=== PATIENT | male | born 1965 | race American Indian/Alaskan Native ===

== ENCOUNTER 2017-10-15 15:45 | Emergency (ER) | payer BC ==
[2017-10-15 16:22] LABS: Bilirubin,Urine NEG (Negative); Blood,Urine NEG (Negative); Color,Urine Yellow (Yellow); Nitrite,Urine NEG (Negative); Protein,Urine <15 mg/dL mg/dL (Negative); WBC,Urine < 1.0 /HPF (0.0-6.0)
[2017-10-15 16:36] LABS: Alanine Aminotransferase 294 units/L (7-56); Albumin 3.8 g/dL (3.9-5); BUN/Creatinine Ratio 16; Blood Urea Nitrogen 14 mg/dL (9-20); Calcium 8.9 mg/dL (8.4-10.2); Hemolysis Index 7; Lipase 42 units/L (13-60)
[2017-10-15 16:43] LABS: Basophils % (Auto) 0.5 % (0.0-1.8); Eosinophils # (Auto) 0.1 K/mm3 (0.0-0.4); Eosinophils % (Auto) 1.6 % (0.0-4.3); Hematocrit 43.3 % (35.5-45.6); Hemoglobin 14.6 gm/dl (11.8-15.2); Lymphocytes # (Auto) 2.2 K/mm3 (1.2-5.4); Lymphocytes % (Auto) 39.6 % (13.4-35.0); Mean Corpuscular HGB Conc 34 % (32-34); Mean Corpuscular Hemoglobin 31 pg (28-32); Mean Corpuscular Volume 91 fl (84-94); Monocytes # (Auto) 0.5 K/mm3 (0.0-0.8); Monocytes % (Auto) 9.5 % (0.0-7.3); Platelet Count 201 K/mm3 (140-440); Red Blood Count 4.78 M/mm3 (3.65-5.03); Red Cell Distribution Width 13.7 % (13.2-15.2)
--- NOTE | 2017-10-15 17:07 | Emergency Department Report ---
ED N/V/D HPI - General Chief complaint: Nausea/Vomiting/Diarrhea Stated complaint: NVD Time Seen by Provider: 10/15/17 17:06 Source: patient Mode of arrival: Ambulatory Limitations: No Limitations - History of Present Illness Initial comments: Patient complains of nausea vomiting and diarrhea for 2 days. He has a blood pressure of 135/103 and he said he supposedly taking blood pressure medication but he doesn't know the name and he doesn't really take them. Patient does not have a primary care at present. Denies any vomiting today or diarrhea today. Reports nausea at this morning. No [id number] medication taken. Denies any urinary burning, frequency or urgency. Denies any back pain, chest pain or shortness of breath. Denies any history of heart disease. Denies any blood in his stool or any blood in his vomit. Patient said he ate [employer] prior to symptoms started and he thinks this what started it because it is getting better but he still has some nausea but not as much vomiting or diarrhea. MD complaint: nausea, vomiting, diarrhea Onset/Timin -: days(s) Description of Vomiting: food contents Description of Diarrhea: water Associated Abdominal Pain: No Pain Scale: 0 Context: possible food poisoning Associated Symptoms: nausea/vomiting. denies: myalgias, chest pain, cough, diaphoresis, fever/chills, headaches, loss of appetite, malaise, rash, dysuria, shortness of breath, syncope, weakness - Related Data Previous Rx's Medication Instructions Recorded Last Taken Type Acetaminophen/Codeine [Tylenol #3] 1 tab PO Q4HR PRN #20 tablet 08/19/15 Unknown Rx Amoxicillin/K Clav Tab [Augmentin 1 tab PO Q12HR #10 tab 08/19/15 Unknown Rx 875 mg] Ibuprofen [Motrin 800 MG tab] 800 mg PO Q8HR PRN #30 tablet 08/19/15 Unknown Rx Promethazine [Phenergan TAB] 25 mg PO Q6HR PRN #12 tab 10/15/17 Unknown Rx Allergies Allergy/AdvReac Type Severity Reaction Status Date / Time No Known Allergies Allergy Unverified 08/19/15 18:38 ED Review of Systems ROS: Stated complaint: NVD Other details as noted in HPI Comment: All other systems reviewed and negative Constitutional: no symptoms reported Eyes: denies: eye pain ENT: denies: throat pain, congestion Respiratory: no symptoms reported Cardiovascular: denies: chest pain, palpitations, dyspnea on exertion, edema, syncope, paroxysmal nocturnal dyspnea Gastrointestinal: nausea, vomiting, diarrhea. denies: abdominal pain, constipation, hematemesis, melena, hematochezia Genitourinary: denies: urgency, dysuria, frequency, hematuria, discharge, testicular pain, testicular mass Musculoskeletal: denies: back pain Skin: denies: rash Neurological: denies: headache, numbness, paresthesias, confusion, abnormal gait , vertigo ED Past Medical Hx - Past Medical History Previous Medical History?: Yes Hx Hypertension: Yes - Surgical History Past Surgical History?: Yes Additional Surgical History: hernia - Family History Family history: hypertension - Social History Smoking Status: Former Smoker Substance Use Type: Non Opiate Pain, Prescribed, Other (previously heavy all call user) - Medications Home Medications: Home Medications Medication Instructions Recorded Confirmed Last Taken Type Acetaminophen/Codeine [Tylenol #3] 1 tab PO Q4HR PRN #20 tablet 08/19/15 Unknown Rx Amoxicillin/K Clav Tab [Augmentin 1 tab PO Q12HR #10 tab 08/19/15 Unknown Rx 875 mg] Ibuprofen [Motrin 800 MG tab] 800 mg PO Q8HR PRN #30 tablet 08/19/15 Unknown Rx Promethazine [Phenergan TAB] 25 mg PO Q6HR PRN #12 tab 10/15/17 Unknown Rx ED Physical Exam - General Limitations: No Limitations General appearance: in no apparent distress - Head Head exam: Present: atraumatic, normocephalic, normal inspection - Eye Eye exam: Present: normal appearance, PERRL, EOMI. Absent: scleral icterus, nystagmus, periorbital swelling, periorbital tenderness Pupils: Present: normal accommodation - ENT ENT exam: Present: normal exam, normal orophraynx, mucous membranes moist, TM's normal bilaterally, normal external ear exam - Neck Neck exam: Present: normal inspection, full ROM, other (no C-spine tenderness). Absent: tenderness, meningismus, lymphadenopathy, thyromegaly - Respiratory Respiratory exam: Present: normal lung sounds bilaterally. Absent: respiratory distress, chest wall tenderness, accessory muscle use - Cardiovascular Cardiovascular Exam: Present: regular rate, normal rhythm, normal heart sounds. Absent: systolic murmur, diastolic murmur - GI/Abdominal GI/Abdominal exam: Present: soft, normal bowel sounds. Absent: distended, tenderness, guarding, rebound, rigid, organomegaly, mass, bruit, pulsatile mass , hernia - Extremities Exam Extremities exam: Present: normal inspection, full ROM, normal capillary refill , other (no clubbing, cyanosis or edema. +2 pulses in all extremities and no neurovascular compromise). Absent: tenderness, pedal edema, joint swelling, calf tenderness - Back Exam Back exam: Present: normal inspection, full ROM, other (ambulates without any difficulties). Absent: tenderness, CVA tenderness (R), CVA tenderness (L), muscle spasm, paraspinal tenderness, vertebral tenderness, rash noted - Neurological Exam Neurological exam: Present: alert, oriented X3, normal gait, reflexes normal. Absent: motor sensory deficit - Psychiatric Psychiatric exam: Present: normal affect, normal mood - Skin Skin exam: Present: warm, dry, intact, normal color. Absent: rash ED Course Vital Signs 10/15/17 15:48 Temperature 97.8 F Pulse Rate 72 Respiratory 20 Rate Blood Pressure 135/103 O2 Sat by Pulse 97 Oximetry Vital Signs 10/15/17 10/15/17 15:48 18:25 Temperature 97.8 F Pulse Rate 72 Respiratory 20 Rate Blood Pressure 135/103 Blood Pressure 130/100 [Left] O2 Sat by Pulse 97 Oximetry - Reevaluation(s) Reevaluation #1: 10/15/17 18:23 Patient given Zofran 8 mg ODT and emergency room which relieved his nausea. He said he's feeling much better and was orally challenged emergency room. ED Medical Decision Making - Lab Data Result diagrams: 10/15/17 16:02 10/15/17 16:02 Lab Results 10/15/17 10/15/17 10/15/17 Range/Units 16:02 16:02 16:06 WBC 5.5 (4.5-11.0) K/mm3 RBC 4.78 (3.65-5.03) M/mm3 Hgb 14.6 (11.8-15.2) gm/dl Hct 43.3 (35.5-45.6) % MCV 91 (84-94) fl MCH 31 (28-32) pg MCHC 34 (32-34) % RDW 13.7 (13.2-15.2) % Plt Count 201 (140-440) K/mm3 Lymph % (Auto) 39.6 H (13.4-35.0) % [place] % (Auto) 9.5 H (0.0-7.3) % Eos % (Auto) 1.6 (0.0-4.3) % Baso % (Auto) 0.5 (0.0-1.8) % Lymph # 2.2 (1.2-5.4) K/mm3 [place] # 0.5 (0.0-0.8) K/mm3 Eos # 0.1 (0.0-0.4) K/mm3 Baso # 0.0 (0.0-0.1) K/mm3 Seg Neutrophils % 48.8 (40.0-70.0) % Seg Neutrophils # 2.7 (1.8-7.7) K/mm3 Sodium 142 (137-145) mmol/L Potassium 3.7 (3.6-5.0) mmol/L Chloride 102.1 (98-107) mmol/L Carbon Dioxide 31 H (22-30) mmol/L Anion Gap 13 mmol/L BUN 14 (9-20) mg/dL Creatinine 0.9 (0.8-1.5) mg/dL Estimated GFR > 60 ml/min BUN/Creatinine Ratio 16 % Glucose 83 (75-100) mg/dL Calcium 8.9 (8.4-10.2) mg/dL Total Bilirubin 0.70 (0.1-1.2) mg/dL AST 315 H (5-40) units/L ALT 294 H (7-56) units/L Alkaline Phosphatase 70 (35-129) units/L Total Protein 8.4 H (6.3-8.2) g/dL Albumin 3.8 L (3.9-5) g/dL Albumin/Globulin Ratio 0.8 % Lipase 42 (13-60) units/L Urine Color Yellow (Yellow) Urine Turbidity Clear (Clear) Urine pH 5.0 (5.0-7.0) Ur Specific [place] 1.016 (1.003-1.030) Urine Protein <15 mg/dl (Negative) mg/dL Urine Glucose (UA) Neg (Negative) mg/dL Urine Ketones Neg (Negative) mg/dL Urine Blood Neg (Negative) Urine Nitrite Neg (Negative) Urine Bilirubin Neg (Negative) Urine Urobilinogen 4.0 (<2.0) mg/dL Ur Leukocyte Esterase Neg (Negative) Urine WBC (Auto) < 1.0 (0.0-6.0) /HPF Urine RBC (Auto) 2.0 (0.0-6.0) /HPF - Medical Decision Making ED course: Patient here reports nausea vomiting and diarrhea that started 2 days ago after eating tach about. He has a history of high blood pressure and does not take his medication. Patient also with elevated liver enzymes and in reviewing charts noted in 2016 he had elevated liver enzymes also but today's values were more elevated than previously. Patient denies any alcohol use but he did said he drank heavily up until 2009 and he also said that he had been told by [employer] at he had some issues with his liver but he did not know what the issues were. He denies ever knowing that he has cirrhosis. He denies ever bleeding from his rectal or oral area. Patient was given Zofran 8 mg ODT and was challenged orally in emergency room with nausea medication and tolerated oral liquids well. Patient stable he said he feels better blood pressure is 130/100. I discussed patient that I will refer him to [facility] for primary care and management of chronic medical problems. I also discussed him down for him to [facility] gastroenterology for elevated liver enzyme. I discussed him that he needs to refrain from drinking all call earlier taken any medication such as Motrin, naproxen, ibuprofen, Advil or aspirin until he is being evaluated for reason for elevated liver enzymes. He voiced understanding and discharged home in stable condition with prescription for Zofran and to start off ED in a diet that is planned to include banana, rice , applesauce and toast for the next 72 hours. Critical care attestation.: If time is entered above; I have spent that time in minutes in the direct care of this critically ill patient, excluding procedure time. ED Disposition Clinical Impression: Abnormal liver enzymes, Nausea vomiting and diarrhea Disposition: DC-01 TO HOME OR SELFCARE Is pt being admited?: No Does the pt Need Aspirin: No Condition: Stable Instructions: Acute Nausea and Vomiting (ED), Acute Diarrhea (ED), Nutrition Tips for Relief of Diarrhea (ED) Additional Instructions: Please increase her fluid intake to include water and cranberry, apple or Gatorade. Please avoid taking medication that is toxic to the liver to include Motrin, ibuprofen, naproxen and Advil and aspirin. He will need to follow with a purler regarding her elevated liver enzyme that is chronic. Continue to refrain from drinking alcohol Follow-up with [facility] for management of your blood pressure and she will need to keep a log of her blood pressure to take 2 appointment with you. You really should take blood pressure medication as prescribed by your doctor. Prescriptions: Promethazine [Phenergan TAB] 25 mg PO Q6HR PRN #12 tab PRN Reason: Nausea Referrals: [facility] [Outside] - 2-3 Days [facility] [Provider Group] - 2-3 Days Forms: Work/School Release Form(ED)
[2017-10-15] MEDS ORDERED: ZOFRAN ODT PO ONE (17:11)
[2017-10-15 18:25] VITALS: BP 130/100
== END 2017-10-15 18:47 | disposition home or self-care (01) ==
LOC: ED 15:45
DX: R11.2 Nausea with vomiting, unspecified (principal); R19.7 Diarrhea, unspecified; R74.8 Abnormal levels of other serum enzymes; I10 Essential (primary) hypertension; Z87.891 Personal history of nicotine dependence
CPT/HCPCS: 36415; 80053; 81001; 83690; 85025; 99283; Q0162

== ENCOUNTER 2018-03-11 20:56 | Emergency (ER) | payer BC ==
[2018-03-11 21:24] VITALS: BP 145/106
[2018-03-12] MEDS ORDERED: BENTYL PO ONE (01:19)
--- NOTE | 2018-03-12 01:59 | Emergency Department Report ---
Vomiting/Diarrhea - HPI Chief Complaint: Nausea/Vomiting/Diarrhea Stated Complaint: ABD PAIN; DIARRHEA Time Seen by Provider: 03/12/18 01:17 Duration: for the past week Nausea/Vomiting Severity: None Diarrhea Severity: Mild Symptoms: Yes Able to Tolerate Fluids, No Watery Diarrhea, No Bloody diarrhea, No Fever, No Recent Unusual Foods, No Recent Untreated Water, No Recent use of Antibiotics, No Family w/ Similar Symptoms, No Contacts w/ Similar Symptoms, No Rash, No Hematuria, No Recent URI Symptoms Other History: 52-year-old -[place]ron[place] male comes in complaining of frequent diarrhea. Patient reports that this is been going on for past week when he passes gas he may have a little loose stool or fills with in the back. He reports diarrhea is increasing and sometimes he thinks he is not going to make it to the bathroom. Patient denies any bloody stool reports that the stool is a 20 loose and pasty. Patient denies any recent use of antibiotics no unusual foods no abdominal cramping just stool incontinent and stool urgency he may have 1-2 times a day. Patient does not have a primary care provider at this time. ED Review of Systems ROS: Stated complaint: ABD PAIN; DIARRHEA Other details as noted in HPI Gastrointestinal: diarrhea. denies: abdominal pain, nausea, vomiting, constipation, hematemesis, melena, hematochezia Genitourinary: denies: urgency, dysuria Musculoskeletal: denies: back pain, joint swelling, arthralgia Skin: denies: rash, lesions Neurological: denies: headache, weakness, paresthesias Psychiatric: denies: anxiety, depression Hematological/Lymphatic: denies: easy bleeding, easy bruising ED Past Medical Hx - Past Medical History Previous Medical History?: Yes Hx Hypertension: Yes - Surgical History Past Surgical History?: Yes Additional Surgical History: hernia - Social History Smoking Status: Never Smoker Substance Use Type: None - Medications Home Medications: Home Medications Medication Instructions Recorded Confirmed Last Taken Type Acetaminophen/Codeine [Tylenol #3] 1 tab PO Q4HR PRN #20 tablet 08/19/15 Unknown Rx Amoxicillin/K Clav Tab [Augmentin 1 tab PO Q12HR #10 tab 08/19/15 Unknown Rx 875 mg] Ibuprofen [Motrin 800 MG tab] 800 mg PO Q8HR PRN #30 tablet 08/19/15 Unknown Rx Promethazine [Phenergan TAB] 25 mg PO Q6HR PRN #12 tab 10/15/17 Unknown Rx Vomiting Diarrhea Exam - Exam General: Vital signs noted. No distress. Alert and acting appropriately. HEENT: Yes Moist Mucous Membranes, No Pharyngeal Erythema, No Pharyngeal Exudates, No Rhinorrhea, No Conjuctival Injection, No Frontal Tenderness, No Maxillary Tenderness Neck: No Adenopathy, No Rigidity Lungs: Yes Clear Lung Sounds, Yes Good Air Exchange, No Wheezes, No Stridor, No Cough, No Nasal Flaring, No Retractions, No Use of Accessory Muscles Heart exam: Regular: Yes, Murmur: No, Tachycardia: No Abdomen: Tenderness: No, Peritoneal Signs: No, Distention: No, Hyperactive Bowel sounds: No Skin exam: Rash: No, Edema: No, Normal turgor: Yes Neurologic: Alert and oriented, no deficits. Musculoskeletal: Unremarkable. ED Course Vital Signs 03/11/18 21:15 Temperature 98 F Pulse Rate 74 Respiratory 18 Rate Blood Pressure 145/106 O2 Sat by Pulse 98 Oximetry Critical care attestation.: If time is entered above; I have spent that time in minutes in the direct care of this critically ill patient, excluding procedure time. ED Disposition Clinical Impression: Feces incontinence Qualifiers: Fecal incontinence type: fecal smearing Qualified Code(s): R15.1 - Fecal smearing Disposition: - TO HOME OR SELFCARE Is pt being admited?: No Does the pt Need Aspirin: No Condition: Stable Instructions: Loperamide (By mouth), Acute Diarrhea (ED), Nutrition Tips for Relief of Diarrhea (ED) Additional Instructions: Please follow up with gastroenterology as well as Dr. [place] Farrell for further evaluation. Referrals: PRIMARY CARE, [Primary Care Provider] - 3-5 Days [facility] [Provider Group] - 3-5 Days [facility] [Provider Group] - 3-5 Days CHANTE ESPINO MD [Staff Physician] - 3-5 Days ALBARO FARRELL JR, MD [Staff Physician] - 3-5 Days Forms: Work/School Release Form(ED)
[2018-03-12] MEDS ORDERED: IMODIUM PO ONE (02:02)
== END 2018-03-12 02:33 | disposition home or self-care (01) ==
LOC: ED 20:56
DX: R15.9 Full incontinence of feces (principal); I10 Essential (primary) hypertension
CPT/HCPCS: 99282

== ENCOUNTER 2018-10-13 19:17 | Emergency (ER) | payer BC ==
--- NOTE | 2018-10-13 19:45 | Emergency Department Report ---
Blank Doc - Documentation Documentation: 53 yo male presents with abd discomfort, denies n/v/d able to eat and drink with no issues non tender Reevalute
--- NOTE | 2018-10-13 23:09 | Emergency Department Report ---
ED General Adult HPI - General Chief complaint: Abdominal Pain Stated complaint: ABD PAIN Time Seen by Provider: 10/13/18 19:36 Source: patient Mode of arrival: Ambulatory Limitations: No Limitations - History of Present Illness Initial comments: D5 0 -[place] male who has been seen for the third time for complaint of loss of control with his bowel movements. Patient states it has been dealing with it for a while. States he gets a little morning but not enough time to get to the bathroom. Patient describes his stool is liquid with some solid stool. Patient denies any abdominal pain. Patient admits that he did not follow up with a optic fibre drawer or primary care provider. Patient was also seen in June for the same complaint and was placed on metronidazole Bentyl and ciprofloxacin. -: month(s) (6) Severity scale (0 -10): 5 Consistency: intermittent Associated Symptoms: other Treatments Prior to Arrival: none (diarrhea) - Related Data Previous Rx's Medication Instructions Recorded Last Taken Type Acetaminophen/Codeine [Tylenol #3] 1 tab PO Q4HR PRN #20 tablet 08/19/15 Unknown Rx Amoxicillin/K Clav Tab [Augmentin 1 tab PO Q12HR #10 tab 08/19/15 Unknown Rx 875 mg] Ibuprofen [Motrin 800 MG tab] 800 mg PO Q8HR PRN #30 tablet 08/19/15 Unknown Rx Promethazine [Phenergan TAB] 25 mg PO Q6HR PRN #12 tab 10/15/17 Unknown Rx Ciprofloxacin HCl [Ciprofloxacin 500 mg PO Q12HR #20 tab 06/30/18 Unknown Rx TAB] Dicyclomine [Bentyl] 10 mg PO QID #20 capsule 06/30/18 Unknown Rx metroNIDAZOLE [Flagyl] 500 mg PO Q12HR #20 tab 06/30/18 Unknown Rx Loperamide HCl [Imodium A-D] 2 mg PO TID PRN #15 capsule 10/13/18 Unknown Rx Allergies Allergy/AdvReac Type Severity Reaction Status Date / Time No Known Allergies Allergy Unverified 08/19/15 18:38 ED Review of Systems ROS: Stated complaint: ABD PAIN Other details as noted in HPI Comment: All other systems reviewed and negative ENT: ear pain (rt) Gastrointestinal: diarrhea (intermittent chronic diarrhea) ED Past Medical Hx - Past Medical History Previous Medical History?: Yes Hx Hypertension: Yes Hx Asthma: Yes (as child) - Surgical History Past Surgical History?: Yes Additional Surgical History: hernia repair x3 - Social History Smoking Status: Never Smoker Substance Use Type: None - Medications Home Medications: Home Medications Medication Instructions Recorded Confirmed Last Taken Type Acetaminophen/Codeine [Tylenol #3] 1 tab PO Q4HR PRN #20 tablet 08/19/15 Unknown Rx Amoxicillin/K Clav Tab [Augmentin 1 tab PO Q12HR #10 tab 08/19/15 Unknown Rx 875 mg] Ibuprofen [Motrin 800 MG tab] 800 mg PO Q8HR PRN #30 tablet 08/19/15 Unknown Rx Promethazine [Phenergan TAB] 25 mg PO Q6HR PRN #12 tab 10/15/17 Unknown Rx Ciprofloxacin HCl [Ciprofloxacin 500 mg PO Q12HR #20 tab 06/30/18 Unknown Rx TAB] Dicyclomine [Bentyl] 10 mg PO QID #20 capsule 06/30/18 Unknown Rx metroNIDAZOLE [Flagyl] 500 mg PO Q12HR #20 tab 06/30/18 Unknown Rx Loperamide HCl [Imodium A-D] 2 mg PO TID PRN #15 capsule 10/13/18 Unknown Rx ED Physical Exam - General Limitations: No Limitations General appearance: alert, in no apparent distress - Head Head exam: Present: atraumatic, normocephalic - Eye Eye exam: Present: EOMI - ENT ENT exam: Present: mucous membranes moist, TM's normal bilaterally - Neck Neck exam: Present: normal inspection - Respiratory Respiratory exam: Present: normal lung sounds bilaterally. Absent: respiratory distress - Cardiovascular Cardiovascular Exam: Present: regular rate, normal rhythm. Absent: systolic murmur, diastolic murmur, rubs, gallop - GI/Abdominal GI/Abdominal exam: Present: soft. Absent: tenderness - Rectal Rectal exam: Present: deferred - Neurological Exam Neurological exam: Present: alert, oriented X3 - Psychiatric Psychiatric exam: Present: normal affect, normal mood - Skin Skin exam: Present: warm, dry, intact, normal color. Absent: rash ED Course Vital Signs 10/13/18 19:35 Temperature 98.4 F Pulse Rate 82 Respiratory 18 Rate Blood Pressure 145/93 O2 Sat by Pulse 96 Oximetry ED Medical Decision Making - Medical Decision Making Patient has been evaluated by this provider fast. I discussed the patient that he can take [id number] Imodium for his chronic diarrhea. I also discussed the patient do not take more than 8mg in 24 hours. I discussed the patient that is very important for him to follow up with the optic fibre drawer and her primary care provider. Patient verbalized understanding. Critical care attestation.: If time is entered above; I have spent that time in minutes in the direct care of this critically ill patient, excluding procedure time. ED Disposition Clinical Impression: Chronic diarrhea of unknown origin Disposition: DC- TO HOME OR SELFCARE Is pt being admited?: No Does the pt Need Aspirin: No Condition: Stable Instructions: Loperamide (By mouth), Chronic Diarrhea (ED) Additional Instructions: Discussed that she needs to follow-up with a optic fibre drawer I have listed several below for your convenience. Please take Imodium only as needed in this prescribed. Prescriptions: Loperamide HCl [Imodium A-D] 2 mg PO TID PRN #15 capsule PRN Reason: Diarrhea Referrals: ERICA ORTIZ MD [Primary Care Provider] - 3-5 Days ALBARO MCINTOSH JR, MD [Staff Physician] - 3-5 Days CHANTE ESPINO MD [Staff Physician] - 3-5 Days [facility] [Provider Group] - 3-5 Days [facility] [Provider Group] - 3-5 Days Forms: Work/School Release Form(ED)
== END 2018-10-13 23:30 | disposition home or self-care (01) ==
LOC: ED 19:17
CPT/HCPCS: 99282

== ENCOUNTER 2019-02-17 20:58 | Emergency (ER) | payer BC ==
[2019-02-17 21:44] VITALS: BP 158/104
--- NOTE | 2019-02-17 21:44 | Event Note ---
ED Screening Note Date of service: 02/17/19 Time: 21:42 ED Screening Note: 53 y/o male comes in for 3 week history of back pain. No urinary issues no trauma. This initial assessment/diagnostic orders/clinical plan/treatment(s) is/are subject to change based on patients health status, clinical progression and re- assessment by fellow clinical providers in the ED. Further treatment and workup at subsequent clinical providers discretion. Patient/guardian urged not to elope from the ED as their condition may be serious if not clinically assessed and managed. Initial orders include:
[2019-02-18] MEDS ORDERED: ULTRAM PO ONE (00:29)
--- NOTE | 2019-02-18 01:26 | XRay Report ---
PROCEDURE: XR SPINE LUMBOSACRAL 2-3V TECHNIQUE: Lumbar spine radiographs, PROCEDURE: XR SPINE LUMBOSACRAL 2-3V TECHNIQUE: Lumbar spine radiographs, AP and lateral views. HISTORY: back pain COMPARISONS: None . FINDINGS: Alignment: There is slight anterolisthesis of L4 relation L5 . Vertebral body heights/Disk spaces: Mild loss of disc space height at the L4-5 and L5-S1 levels. Mil d spur formation off the osseous structures. . Fracture(s): None . Facets: Normal . Bone mineralization: Normal . IMPRESSION: No acute fracture or dislocation. Mild lumbar spondylosis. . views. HISTORY: back pain COMPARISONS: None . FINDINGS: Alignment: Normal . Vertebral body heights/Disk spaces: Normal . Fracture(s): None . Facets: Normal . Bone mineralization: Normal . IMPRESSION: Normal Examination . This document is electronically signed by Olivia Cm DO., February 18 2019 01:24:43 AM ET
--- NOTE | 2019-02-18 01:34 | Emergency Department Report ---
ED Back Pain/Injury HPI - General Chief Complaint: Extremity Injury, Lower Stated Complaint: BACK PAIN Time Seen by Provider: 02/18/19 00:28 Source: patient Limitations: No Limitations - History of Present Illness Initial Comments: 53 y/o male comes in for 3 week history of back pain. No urinary issues no trauma. pt has hx of arthralgia pain is 5/10 aching radiating to right lateral thigh there is no weakness parlaysis no numbness no tingling no loss or decrease in bowel or bladder function pt remains ambulatory to baseline per patient. MD Complaint: back pain Onset/Timin -: week(s), unknown (chronic 5 yrs ) Similar Symptoms Previously: Yes Place: home Radiation: right leg Severity: moderate Severity scale (0 -10): 4 Quality: aching Consistency: constant Improves With: none Worsens With: movement, sitting upright, walking Context: while lifting, turning/twisting, bending Associated Symptoms: denies: weakness, difficulty urinating, incontinence, constipation - Related Data Previous Rx's Medication Instructions Recorded Last Taken Type Acetaminophen/Codeine [Tylenol #3] 1 tab PO Q4HR PRN #20 tablet 08/19/15 Unknown Rx Amoxicillin/K Clav Tab [Augmentin 1 tab PO Q12HR #10 tab 08/19/15 Unknown Rx 875 mg] Ibuprofen [Motrin 800 MG tab] 800 mg PO Q8HR PRN #30 tablet 08/19/15 Unknown Rx Promethazine [Phenergan TAB] 25 mg PO Q6HR PRN #12 tab 10/15/17 Unknown Rx Ciprofloxacin HCl [Ciprofloxacin 500 mg PO Q12HR #20 tab 06/30/18 Unknown Rx TAB] Dicyclomine [Bentyl] 10 mg PO QID #20 capsule 06/30/18 Unknown Rx metroNIDAZOLE [Flagyl] 500 mg PO Q12HR #20 tab 06/30/18 Unknown Rx Loperamide HCl [Imodium A-D] 2 mg PO TID PRN #15 capsule 10/13/18 Unknown Rx Diclofenac EC [Voltaren] 25 mg PO Q8HR PRN #60 tablet 02/18/19 Unknown Rx Menthol/Camphor [[place] 1 applicatio TP QID PRN #1 tube 02/18/19 Unknown Rx Ointment] methOCARBAMOL [Robaxin TAB] 500 mg PO Q8H PRN #60 tablet 02/18/19 Unknown Rx predniSONE [Deltasone] 40 mg PO QDAY 5 Days #10 tab 02/18/19 Unknown Rx Allergies Allergy/AdvReac Type Severity Reaction Status Date / Time No Known Allergies Allergy Unverified 08/19/15 18:38 ED Review of Systems ROS: Stated complaint: BACK PAIN Other details as noted in HPI Constitutional: denies: chills, fever Eyes: denies: eye pain, eye discharge, vision change ENT: denies: ear pain, throat pain Respiratory: denies: cough, shortness of breath, wheezing Cardiovascular: denies: chest pain, palpitations Endocrine: no symptoms reported Gastrointestinal: denies: abdominal pain, nausea, vomiting, diarrhea Genitourinary: denies: urgency, dysuria Musculoskeletal: back pain, arthralgia, myalgia. denies: joint swelling Skin: denies: rash, lesions Neurological: denies: headache, weakness, paresthesias Psychiatric: denies: anxiety, depression Hematological/Lymphatic: denies: easy bleeding, easy bruising ED Past Medical Hx - Past Medical History Previous Medical History?: Yes Hx Hypertension: Yes Hx Asthma: Yes (as child) - Surgical History Past Surgical History?: Yes Additional Surgical History: hernia repair x3 - Social History Smoking Status: Never Smoker Substance Use Type: None - Medications Home Medications: Home Medications Medication Instructions Recorded Confirmed Last Taken Type Acetaminophen/Codeine [Tylenol #3] 1 tab PO Q4HR PRN #20 tablet 08/19/15 Unknown Rx Amoxicillin/K Clav Tab [Augmentin 1 tab PO Q12HR #10 tab 08/19/15 Unknown Rx 875 mg] Ibuprofen [Motrin 800 MG tab] 800 mg PO Q8HR PRN #30 tablet 08/19/15 Unknown Rx Promethazine [Phenergan TAB] 25 mg PO Q6HR PRN #12 tab 10/15/17 Unknown Rx Ciprofloxacin HCl [Ciprofloxacin 500 mg PO Q12HR #20 tab 06/30/18 Unknown Rx TAB] Dicyclomine [Bentyl] 10 mg PO QID #20 capsule 06/30/18 Unknown Rx metroNIDAZOLE [Flagyl] 500 mg PO Q12HR #20 tab 06/30/18 Unknown Rx Loperamide HCl [Imodium A-D] 2 mg PO TID PRN #15 capsule 10/13/18 Unknown Rx Diclofenac EC [Voltaren] 25 mg PO Q8HR PRN #60 tablet 02/18/19 Unknown Rx Menthol/Camphor [[place] 1 applicatio TP QID PRN #1 tube 02/18/19 Unknown Rx Ointment] methOCARBAMOL [Robaxin TAB] 500 mg PO Q8H PRN #60 tablet 02/18/19 Unknown Rx predniSONE [Deltasone] 40 mg PO QDAY 5 Days #10 tab 02/18/19 Unknown Rx ED Physical Exam - General Limitations: No Limitations General appearance: alert, in no apparent distress - Head Head exam: Present: atraumatic, normocephalic - Eye Eye exam: Present: normal appearance, PERRL, EOMI Pupils: Present: normal accommodation - ENT ENT exam: Present: mucous membranes moist - Neck Neck exam: Present: normal inspection, full ROM, lymphadenopathy. Absent: tenderness, meningismus, thyromegaly - Expanded Neck Exam Expanded Neck exam: Absent: tenderness (there is no posterior vertebral point tenderness rom intact all raymond), midline deformity, anterior neck swelling, thyroid mass, carotid bruit, tracheal deviation - Respiratory Respiratory exam: Present: normal lung sounds bilaterally. Absent: respiratory distress, wheezes, stridor, chest wall tenderness - Cardiovascular Cardiovascular Exam: Present: regular rate, normal rhythm, normal heart sounds. Absent: systolic murmur, diastolic murmur, rubs, gallop - GI/Abdominal GI/Abdominal exam: Present: soft, normal bowel sounds. Absent: distended, tenderness, guarding, rebound, rigid, bruit, pulsatile mass - Rectal Rectal exam: Present: deferred - Extremities Exam Extremities exam: Present: normal inspection, full ROM, normal capillary refill. Absent: tenderness, pedal edema, joint swelling, calf tenderness - Back Exam Back exam: Present: normal inspection, full ROM, tenderness, muscle spasm, paraspinal tenderness. Absent: CVA tenderness (R), CVA tenderness (L), vertebral tenderness (no posterior vertebral point tenderness ), rash noted - Expanded Back Exam Expanded Back exam: Absent: saddle anesthesia Back exam: Sciatic Notch Tenderness: Right, Positive Straight Leg Raise: Right, Negative Straight Leg Raising: Left - Neurological Exam Neurological exam: Present: alert, oriented X3, CN II-XII intact, normal gait, reflexes normal - Expanded Neurological Exam Expanded Patient oriented to: Present: person, place, time Speech: Present: fluid speech Cranial nerves: EOM's Intact: Normal, Gag Reflex: Normal, Tongue Deviation: Normal, Nystagmus: Normal, Facial Sensation: Normal Cerebellar function: Finger to Nose: Normal, Heel to [place]: Normal, Romberg: Normal Upper motor neuron: Damion Neglect: Normal, Pronator Drift: Normal, Babinski Sign: Normal, Sensory Extinction: Normal Sensory exam: Upper Extremity Light Touch: Normal, Upper Extremity Pin Prick: Normal, Lower Extremity Temperature: Normal, LE 2 Point Discrimination: Normal Motor strength exam: RUE: 5, LUE: 5, RLE: 5, LLE: 5 DTR: bicep (R): 2+, bicep (L): 2+, ankle (R): 2+, ankle (L): 2+ Best Eye Response ([place]): (4) open spontaneously Best Motor Response ([place]): (6) obeys commands Best Verbal Response ([place]): (5) oriented Yesika Total: 15 - Psychiatric Psychiatric exam: Present: normal affect, normal mood - Skin Skin exam: Present: warm, dry, intact, normal color. Absent: rash ED Course Vital Signs 02/17/19 21:41 Temperature 97.9 F Pulse Rate 83 Respiratory 18 Rate Blood Pressure 158/104 O2 Sat by Pulse 97 Oximetry ED Medical Decision Making - Radiology Data Radiology results: report reviewed, image reviewed Patient: LIBORIO CARCAMO MR#: [id number] : 1965 Acct:[id number] Age/Sex: 53 / M ADM Date: 02/17/19 Loc: ED Attending Dr: Ordering Physician: MARLYN ALMODOVAR NP Date of Service: 02/18/19 Procedure(s): XR spine lumbosacral 2-3V Accession Number(s): [id number] cc: MARLYN ALMODOVAR NP Fluoro Time In Minutes: PROCEDURE: XR SPINE LUMBOSACRAL 2-3V TECHNIQUE: Lumbar spine radiographs, PROCEDURE: XR SPINE LUMBOSACRAL 2-3V TECHNIQUE: Lumbar spine radiographs, AP and lateral views. HISTORY: back pain COMPARISONS: None . FINDINGS: Alignment: There is slight anterolisthesis of L4 relation L5 . Vertebral body heights/Disk spaces: Mild loss of disc space height at the L4-5 and L5-S1 levels. Mild spur formation off the osseous structures. . Fracture(s): None . Facets: Normal . Bone mineralization: Normal . IMPRESSION: No acute fracture or dislocation. Mild lumbar spondylosis. . views. HISTORY: back pain COMPARISONS: None . FINDINGS: Alignment: Normal . Vertebral body heights/Disk spaces: Normal . Fracture(s): None . Facets: Normal . Bone mineralization: Normal . IMPRESSION: Normal Examination . This document is electronically signed by Olivia Cm DO., February 18 2019 01:24:43 AM ET Transcribed By: [facility] Dictated By: OLIVIA CM MD Electronically Authenticated By: OLIVIA CM MD Signed Date/Time: 02/18/19 0135 DD/ 0029 TD/TT: 02/18/19 0050 - Medical Decision Making xray no fracture no soft tissue abnormality mild lumbar spondylosis, plan nsaids muscle relaxant, analgesic balm , moist heat therapy , follow up with ortho as requested pt verbalized agreement and understanding of same. Critical care attestation.: If time is entered above; I have spent that time in minutes in the direct care of this critically ill patient, excluding procedure time. ED Disposition Clinical Impression: Lumbar strain Qualifiers: Encounter type: initial encounter Qualified Code(s): S39.012A - Strain of muscle, fascia and tendon of lower back, initial encounter Chronic low back pain Qualifiers: Back pain laterality: right Sciatica presence: with sciatica Sciatica laterality: sciatica of right side Qualified Code(s): M54.41 - Lumbago with sc iatica, right side; G89.29 - Other chronic pain Disposition: - TO HOME OR SELFCARE Is pt being admited?: No Does the pt Need Aspirin: No Condition: Stable Instructions: Low Back Strain (ED), Core Strengthening Exercises (GEN), Sciatica (ED) Prescriptions: predniSONE [Deltasone] 40 mg PO QDAY 5 Days #10 tab methOCARBAMOL [Robaxin TAB] 500 mg PO Q8H PRN #60 tablet PRN Reason: Muscle Spasm Menthol/Camphor [[place] Ointment] 1 applicatio TP QID PRN #1 tube PRN Reason: pain Diclofenac EC [Voltaren] 25 mg PO Q8HR PRN #60 tablet PRN Reason: pain Referrals: MARCOS SILVER MD [Emergency Provider] - 3-5 Days Forms: Work/School Release Form(ED) Time of Disposition: 01:51
== END 2019-02-18 02:00 | disposition home or self-care (01) ==
LOC: ED 20:58
DX: S39.012A Strain of muscle, fascia and tendon of lower back, initial encounter (principal); G89.29 Other chronic pain; I10 Essential (primary) hypertension; J45.909 Unspecified asthma, uncomplicated; X50.9XXA Other and unspecified overexertion or strenuous movements or postures, initial encounter; Y93.89 Activity, other specified; Y92.009 Unspecified place in unspecified non-institutional (private) residence as the place of occurrence of the external cause; Y99.8 Other external cause status
CPT/HCPCS: 72100

== ENCOUNTER 2019-08-10 22:12 | Emergency (ER) | payer SELFPAY ==
--- NOTE | 2019-08-10 22:32 | Emergency Department Report ---
HPI - General Time Seen by Provider: 08/10/19 22:28 - HPI HPI: Room 21 The patient is a 54-year-old male presenting with chief complaint cardiac arrest. Per EMS the patient was found face down on sidewalk ventricular fibrillation. An opiate was placed and ACLS protocols were initiated. EMS states they defibrillated the patient multiple times and administered 4 rounds of epinephrine and 1 amp of sodium bicarbonate through an IO. Upon arrival to the ED the patient was intubated by myself with an 8.0 ET tube and ACLS protocols were continued without return of spontaneous circulation ED Past Medical Hx - Past Medical History Hx Hypertension: Yes Hx Asthma: Yes (as child) - Surgical History Additional Surgical History: hernia repair x3 - Family History Family history: no significant - Social History Smoking Status: Unknown if ever smoked Substance Use Type: None - Medications Home Medications: Home Medications Medication Instructions Recorded Confirmed Last Taken Type Acetaminophen/Codeine [Tylenol #3] 1 tab PO Q4HR PRN #20 tablet 08/19/15 Unknown Rx Amoxicillin/K Clav Tab [Augmentin 1 tab PO Q12HR #10 tab 08/19/15 Unknown Rx 875 mg] Ibuprofen [Motrin 800 MG tab] 800 mg PO Q8HR PRN #30 tablet 08/19/15 Unknown Rx Promethazine [Phenergan TAB] 25 mg PO Q6HR PRN #12 tab 10/15/17 Unknown Rx Ciprofloxacin HCl [Ciprofloxacin 500 mg PO Q12HR #20 tab 06/30/18 Unknown Rx TAB] Dicyclomine [Bentyl] 10 mg PO QID #20 capsule 06/30/18 Unknown Rx metroNIDAZOLE [Flagyl] 500 mg PO Q12HR #20 tab 06/30/18 Unknown Rx Loperamide HCl [Imodium A-D] 2 mg PO TID PRN #15 capsule 10/13/18 Unknown Rx Diclofenac EC [Voltaren] 25 mg PO Q8HR PRN #60 tablet 02/18/19 Unknown Rx Menthol/Camphor [[place] 1 applicatio TP QID PRN #1 tube 02/18/19 Unknown Rx Ointment] methOCARBAMOL [Robaxin TAB] 500 mg PO Q8H PRN #60 tablet 02/18/19 Unknown Rx predniSONE [Deltasone] 40 mg PO QDAY 5 Days #10 tab 02/18/19 Unknown Rx ED Review of Systems ROS: Stated complaint: CARDIAC ARREST Other details as noted in HPI Comment: Unobtainable due to pts medical conditions Physical Exam - Physical Exam Physical Exam: GENERAL: The patient is well-developed well-nourished man lying on stretcher receiving compressions from EMS and being bagged via BVM. [] HEENT: Normocephalic. Atraumatic. Pupils equal bilateral NECK: Trachea midline CHEST/LUNGS: No spontaneous respirations. Breath sounds equal bilaterally after intubation by myself HEART/CARDIOVASCULAR: No heart sounds. A. fib on monitor ABDOMEN: Abdomen is soft SKIN: There is no rash. There is no edema. There is no diaphoresis. NEURO: GCS 320 MUSCULOSKELETAL: There is no evidence of acute injury. ED Medical Decision Making - Differential Diagnosis cardiac arrest Critical care attestation.: If time is entered above; I have spent that time in minutes in the direct care of this critically ill patient, excluding procedure time. ED Disposition Clinical Impression: Cardiac arrest Disposition: DC-20 Is pt being admited?: No Does the pt Need Aspirin: No Condition: Poor Time of Disposition: 22:32 (patient )
[2019-08-10 22:53] VITALS: BP 66/41
[2019-08-10] MEDS ORDERED: LIDOCAINE DRIP 2,000 MG/500 ML BAG IV ONE (22:53)
== END 2019-08-11 01:56 ==
LOC: ED 22:12
DX: I50.9 Heart failure, unspecified (principal); I10 Essential (primary) hypertension; J45.909 Unspecified asthma, uncomplicated; Z98.890 Other specified postprocedural states; Z79.899 Other long term (current) drug therapy
CPT/HCPCS: 31500